=== PATIENT | female | born 1990 | race Caucasian/White ===

== ENCOUNTER 2020-10-12 17:00 | Emergency (ER) | payer MEDICAID ==
[~2020-10-12] VITALS: Ht 165.1 cm; Wt 68.0 kg
[2020-10-12 17:47] LABS: BASOPHILS % 0.3 % (0.0-2.0); EOSINOPHILS % 1.5 % (0.0-5.0); HEMATOCRIT. 41.6 % (36.0-48.0); HEMOGLOBIN. 14.3 g/dL (12.0-16.0); LYMPHOCYTES % 25.7 % (20.0-50.0); MEAN CORPUSCULAR HEMOGLOBIN 30.7 pg (28.0-32.0); MEAN CORPUSCULAR VOLUME 89.5 fL (81.0-99.0); MEAN PLATELET VOLUME 9.8 fl (7.4-10.4); MONOCYTES % 5.9 % (2.0-8.0); NEUTROPHILS % 66.6 % (40.0-76.0); PLATELET 226 x1000/uL (130-400); RED BLOOD CELL COUNT 4.65 mill/uL (4.2-5.4); RED CELL DISTRIBUTION WIDTH 13.3 % (11.6-14.6)
[2020-10-12 17:51] LABS: CHLORIDE 105 mEq/L (98-107)
[2020-10-12 18:15] LABS: B-HCG QUANTITATIVE 64754 mIU/mL (<3)
[2020-10-12 19:55] VITALS: BP 98/58
== END 2020-10-12 20:14 | disposition home or self-care (01) ==
LOC: ER 18:40
DX: O46.91 Antepartum hemorrhage, unspecified, first trimester (principal); Z3A.14 14 weeks gestation of pregnancy
CPT/HCPCS: 36415; 76805; 80053; 81025; 84702; 85025; 86850; 86900; 86901; 99284; Z7610